=== PATIENT | female | born 1935 | race Asian ===

== ENCOUNTER → 2018-03-30 | Outpatient (CLI) | payer MEDICARE, BC ==
[~2018-03-30] MED LIST: ASPIR 8181 MG PO; HYDROCHLOROTHIA25 MG PO; LOSARTAN POTASS25 MG PO; METHOTREXATE2.5 MG PO; PLAVIX75 MG PO; PROCARDIA XL30 MG PO
--- NOTE | 2018-03-30 22:39 | Diagnostic Imaging Report ---
Examination: CT CERVICAL SPINE WITHOUT CONTRAST HISTORY: Chronic neck pain. COMPARISON:None. TECHNIQUE: Multidetector helical axial images were obtained without contrast from the foramen magnum to T1. Coronal and sagittal reformatted images were done. Bone and soft tissue windows were evaluated. Dose modulation, iterative reconstruction, and/or weight based adjustment of the mA/kV was utilized to reduce the radiation dose to as low as reasonably achievable. FINDINGS: Alignment:Normal alignment with straightening of normal lordosis. Vertebrae: Normal height and density. No acute fracture, infection or neoplasm.. Disc space heights: Normal height.. Caliber of spinal canal: Developmentally normal. Posterior fossa and craniocervical junction: Foramen magnum patent. No Chiari 1 malformation.. Soft tissues: No abnormality.. Individual intervertebral disc levels: C1-C2: Hypertrophic changes with mild narrowing of the joint space. C2-C3: Severe left neural foraminal narrowing due to uncovertebral and facet arthropathy. No right foraminal or canal stenosis. C3-C4: Diffuse disc osteophyte complex and moderate bilateral uncovertebral and facet arthropathy result in severe right and moderate left neural foraminal narrowing. No canal stenosis. C4-C5: Diffuse disc osteophyte complex and mild bilateral uncovertebral and severe left facet arthropathy result in severe left neural foraminal narrowing. No right foraminal or canal stenosis. C5-C6: Diffuse disc osteophyte complex and moderate bilateral uncovertebral and facet arthropathy result in severe right and moderate left neural foraminal narrowing. No canal stenosis. C6-C7: Diffuse disc osteophyte complex and mild bilateral uncovertebral and facet arthropathy result in mild bilateral neural foraminal narrowing. No canal stenosis. . C7-T1: No abnormality. IMPRESSION: 1. Degenerative change from C1-C2 to C6-C7 without canal stenosis. 2. Severe right neural foraminal narrowing at C3-C4, C5-C6 and severe left foraminal narrowing at C2-C3 and C4-C5. Signed by: Dr. Quita Rose M.D. on 03/30/2018 10:36 PM
== END ==
LOC: CT 12:29
PROVIDERS: ATTEND Internal Medicine
DX: M54.2 Cervicalgia (principal); M06.9 Rheumatoid arthritis, unspecified
CPT/HCPCS: 72125

== ENCOUNTER 2018-07-21 09:55 | Outpatient (RCR) | payer MEDICARE, BC | END 2018-07-23 | LOC: OT 09:55 | PROVIDERS: ATTEND Internal Medicine | DX: M47.892 Other spondylosis, cervical region (principal); M19.012 Primary osteoarthritis, left shoulder; M19.011 Primary osteoarthritis, right shoulder; M19.042 Primary osteoarthritis, left hand; M19.041 Primary osteoarthritis, right hand | CPT/HCPCS: 97010; 97110 ×10; 97140 ×2; 97162; 97165; 97530; 97763 ×3; G8984; G8985; G8987; G8988; L3933 ×2 ==

== ENCOUNTER 2018-08-12 10:37 | Outpatient (RCR) | payer MEDICARE, BC | END 2018-08-20 | LOC: OT 10:37 | PROVIDERS: ATTEND Internal Medicine | DX: M47.892 Other spondylosis, cervical region (principal); M54.2 Cervicalgia; M19.012 Primary osteoarthritis, left shoulder; M19.011 Primary osteoarthritis, right shoulder; M19.042 Primary osteoarthritis, left hand; M19.041 Primary osteoarthritis, right hand; M25.511 Pain in right shoulder; M25.512 Pain in left shoulder | CPT/HCPCS: 97110 ×4; 97139; 97763; L3927 ==

== ENCOUNTER → 2020-04-06 | Outpatient (CLI) | payer MEDICARE, BC ==
[~2020-04-06] MED LIST changes: +IOPAMIDOL 300 MG/ML 15ML VIAL IT ONE; +LIDOCAINE HCL 1% LOCAL INJ 20 ML VIAL ONE
== END ==
LOC: DX 08:36
PROVIDERS: ATTEND Internal Medicine
DX: M54.12 Radiculopathy, cervical region (principal)
CPT/HCPCS: J2001; Q9967

== ENCOUNTER 2020-07-26 13:35 | Emergency (ER) | payer MEDICARE, BC ==
[~2020-07-26] VITALS: Ht 154.9 cm; Wt 62.6 kg
[~2020-07-26 13:35] MED LIST changes: -IOPAMIDOL 300 MG/ML 15ML VIAL IT ONE; -LIDOCAINE HCL 1% LOCAL INJ 20 ML VIAL ONE
== END 2020-07-26 17:01 | disposition home or self-care (01) ==
LOC: ER 14:24
DX: S80.02XA Contusion of left knee, initial encounter (principal); S20.219A Contusion of unspecified front wall of thorax, initial encounter; W01.0XXA Fall on same level from slipping, tripping and stumbling without subsequent striking against object, initial encounter; Y93.01 Activity, walking, marching and hiking; M19.90 Unspecified osteoarthritis, unspecified site; Z95.810 Presence of automatic (implantable) cardiac defibrillator
CPT/HCPCS: 71101; 99283

== ENCOUNTER → 2020-08-15 | Outpatient (CLI) | payer MEDICARE, BC | LOC: RAD 12:00 | PROVIDERS: ATTEND Internal Medicine | DX: M06.832 Other specified rheumatoid arthritis, left wrist (principal); M06.831 Other specified rheumatoid arthritis, right wrist; M06.812 Other specified rheumatoid arthritis, left shoulder; M45.2 Ankylosing spondylitis of cervical region; M06.842 Other specified rheumatoid arthritis, left hand; M06.841 Other specified rheumatoid arthritis, right hand | CPT/HCPCS: 72050 ==

== ENCOUNTER → 2021-09-26 | Outpatient (CLI) | payer MEDICARE, BC | LOC: RAD 13:15 | PROVIDERS: ATTEND Internal Medicine | DX: I50.22 Chronic systolic (congestive) heart failure (principal); I10 Essential (primary) hypertension; D64.9 Anemia, unspecified; R53.1 Weakness; R63.4 Abnormal weight loss ==

== ENCOUNTER → 2023-01-09 | Day surgery (SDC) | payer BC, MEDICARE ==
[2023-01-02 14:06] LABS: HEMATOCRIT 40.6 % (34.2-44.1)
[2023-01-02 14:41] LABS: ANION GAP 17.1 mmol/L (8-16); CALCIUM 10.1 mg/dL (8.4-10.2); CREATININE, SERUM 0.93 mg/dL (0.57-1.11); POTASSIUM 5.1 mmol/L (3.5-5.1)
[~2023-01-09] MED LIST changes: +ALTOPREV40 MG PO; +BALANCED SALT SOLN (OPTH) 15 ML BTL IO ONE; +BUPIVACAINE HC 0.75% PF 10ML VIAL INJ ONE; +EPINEPHRINE HCL 1:1000 1ML 1 MG/ML AMP ONE; +GATIFLOXACIN(OPTH) 5 ML LIQD ONE; +LACTATED RINGER'S 1,000 ML ONE; +LIDOCAINE 2% /EPINEPHRINE 20 ML SDV INJ ONE; +LIDOCAINE HCL 2% LOCAL INJ 5 ML SDV VIAL INJ ONE; +LIDOCAINE HCL-PF 4% 40 MG/1 ML 5ML AMP ONE; +OXYBUTYNIN CHLOR5 MG PO; +PHENYLEPHRINE HCL 2 ML DROPS ONE; +POVIDONE IODINE 0.05% 0.05 % ML PO ONE; +POVIDONE IODINE 5% (OPTH) 30 ML BTL ONE; +PROPOFOL IV EMULSION 10 MG/ML 20 ML VIAL ONE; +TOBRAMYCIN/DEXAMETHASONE(OPTH) 3.5 GM TUBE ONE; +TYLENOL325 MG PO; +VITAMIN D3 COM1 EACH PO
[2023-01-09 11:20] VITALS: TEMP 97.2
[2023-01-09 11:40] VITALS: BP 154/71; PULSE 71; RESP 18; O2SAT 98
== END | disposition home or self-care (01) ==
LOC: OR 07:42
PROVIDERS: ATTEND Ophthalmology
DX: H25.11 Age-related nuclear cataract, right eye (principal); I10 Essential (primary) hypertension; I48.91 Unspecified atrial fibrillation; K21.9 Gastro-esophageal reflux disease without esophagitis; Z01.812 Encounter for preprocedural laboratory examination; Z79.899 Other long term (current) drug therapy; Z95.810 Presence of automatic (implantable) cardiac defibrillator
CPT/HCPCS: 36415; 66984; 80048; 85014; 85018; J0171; J2001 ×2; J2704; J7121; V2632

== ENCOUNTER → 2024-02-09 | Outpatient (REF) | payer MEDICARE ==
[~2024-02-09] MED LIST changes: -BALANCED SALT SOLN (OPTH) 15 ML BTL IO ONE; -BUPIVACAINE HC 0.75% PF 10ML VIAL INJ ONE; -EPINEPHRINE HCL 1:1000 1ML 1 MG/ML AMP ONE; -GATIFLOXACIN(OPTH) 5 ML LIQD ONE; -LACTATED RINGER'S 1,000 ML ONE; -LIDOCAINE 2% /EPINEPHRINE 20 ML SDV INJ ONE; -LIDOCAINE HCL 2% LOCAL INJ 5 ML SDV VIAL INJ ONE; -LIDOCAINE HCL-PF 4% 40 MG/1 ML 5ML AMP ONE; -PHENYLEPHRINE HCL 2 ML DROPS ONE; -POVIDONE IODINE 0.05% 0.05 % ML PO ONE; -POVIDONE IODINE 5% (OPTH) 30 ML BTL ONE; -PROPOFOL IV EMULSION 10 MG/ML 20 ML VIAL ONE; -TOBRAMYCIN/DEXAMETHASONE(OPTH) 3.5 GM TUBE ONE
[2024-02-09 10:28] LABS: BASOPHILS # (AUTO) 0.1 (0.0-0.1); BASOPHILS % 0.9 % (0.0-1.0); EOSINOPHILS # (AUTO) 0.2 (0.0-0.4); EOSINOPHILS % 1.9 % (0.0-6.0); HEMATOCRIT 41.4 % (34.2-44.1); HEMOGLOBIN 13.1 g/dL (12.0-16.0); LYMPHOCYTES % 23.9 % (18.0-39.1); MEAN CORPUSCULAR HEMOGLOBIN 29.4 pg (28-32); MEAN CORPUSCULAR HGB CONC 31.6 g/dL (31-35); MEAN CORPUSCULAR VOLUME 92.8 fL (81-99); MONOCYTES # (AUTO) 0.3 (0.2-0.8); MONOCYTES % 3.5 % (4.4-11.3); NEUTROPHILS # (AUTO) 5.9 (2.1-6.9); NEUTROPHILS % 69.6 % (38.7-80.0); PLATELET COUNT 213 x10e3/uL (140-360); RED BLOOD COUNT 4.46 x10e6/uL (3.6-5.1); RED CELL DISTRIBUTION WIDTH 14.4 % (11.7-14.4); WHITE BLOOD COUNT 8.51 x10e3/uL (4.8-10.8)
[2024-02-09 10:52] LABS: ALBUMIN 4.1 g/dL (3.5-5.0); ALBUMIN/GLOBULIN RATIO 1.1 (0.8-2.0); ANION GAP 13.7 mmol/L (8-16); BILIRUBIN,TOTAL 0.7 mg/dL (0.2-1.2); CALCIUM 9.6 mg/dL (8.4-10.2); CHOL/HDL RATIO 2.9 (3.0-3.6); CREATININE, SERUM 1.19 mg/dL (0.57-1.11); MAGNESIUM 2.2 MG/DL (1.3-2.1); POTASSIUM 4.7 mmol/L (3.5-5.1)
[2024-02-09 21:43] LABS: FREE T4 (FREE THYROXINE) 0.9 ng/dL (0.8-1.8)
[2024-02-09 21:44] LABS: THYROID STIMULATING HORMONE 2.78 uIU/mL (0.350-4.940)
== END ==
LOC: LAB 10:06
PROVIDERS: ATTEND Internal Medicine Cardiovascular Disease
DX: I50.32 Chronic diastolic (congestive) heart failure (principal); I10 Essential (primary) hypertension; I25.10 Atherosclerotic heart disease of native coronary artery without angina pectoris; Z95.810 Presence of automatic (implantable) cardiac defibrillator
CPT/HCPCS: 36415; 80053; 80061; 83735; 84439; 84443; 85025